=== PATIENT | male | born 1995 | race Caucasian/White ===

== ENCOUNTER 2016-12-16 23:46 | Emergency (ER) | payer BC ==
[~2016-12-16] VITALS: Ht 177.8 cm; Wt 48.5 kg
[2016-12-17] MEDS ORDERED: BENADRYL ALLERG25 M5 PO (00:05)
[2016-12-17] MEDS ORDERED: KENALOG 0.1%80 GM T (00:05)
[2016-12-17] MEDS ORDERED: PREDNISONE10 MG PO (00:05)
== END 2016-12-17 00:32 | disposition home or self-care (01) ==
LOC: ED 23:46
DX: L23.7 Allergic contact dermatitis due to plants, except food (principal)

== ENCOUNTER 2019-08-24 00:26 | Emergency (ER) | payer BC ==
[~2019-08-24] VITALS: Ht 175.2 cm; Wt 68.0 kg
[~2019-08-24 00:26] MED LIST: BENADRYL ALLERG25 M5 PO; KENALOG 0.1%80 GM T; PREDNISONE10 MG PO
[2019-08-24] MEDS ORDERED: AMOXICILLIN500 M2 PO ×2 (01:14→23:25)
[2019-08-24] MEDS ORDERED: CLINDAMYCIN HC300 MG PO (23:32)
== END 2019-08-24 01:42 | disposition home or self-care (01) ==
LOC: ED 00:26
DX: R22.0 Localized swelling, mass and lump, head (principal); R51 Headache; Z79.899 Other long term (current) drug therapy

== ENCOUNTER 2019-08-24 23:03 | Emergency (ER) | payer BC ==
[~2019-08-24] VITALS: Ht 434.3 cm; Wt 54.4 kg
[~2019-08-24 23:03] MED LIST changes: +AMOXICILLIN500 M2 PO
[2019-08-24] MEDS ORDERED: AMOXICILLIN500 M2 PO (23:25)
[2019-08-24] MEDS ORDERED: CLINDAMYCIN HC300 MG PO (23:32)
[2019-08-24 23:48] LABS: BASO % 0.1 % (0.0-1.0); EOS % 0.2 % (1.0-4.0); HEMATOCRIT 42.3 % (42.0-52.0); HEMOGLOBIN 14.4 g/dl (14.0-18.0); LYMPH # 2.7 10*3/uL (1.3-4.4); LYMPH % 18.8 % (27.0-41.0); MEAN CELL VOLUME 87.8 fl (80.0-94.0); MEAN CORPUSCULAR HGB 29.9 pg (27.0-31.0); MEAN PLATELET VOLUME 8.3 fl (9.6-12.3); MONO # 1.5 10*3/uL (0.1-1.0); MONO % 10.5 % (3.0-9.0); NEUT % 70.1 % (47.0-73.0); PLATELET COUNT AUTOMATED 244 10*3/uL (130-400); RED BLOOD COUNT 4.82 10*6/uL (4.50-5.90); RED CELL DISTRI WIDTH 12.4 % (0-14.5); WHITE BLOOD COUNT 14.2 10*3/uL (4.8-10.8)
[2019-08-25 00:03] LABS: ALBUMIN 4.1 gm/dl (3.1-4.5); ALKALINE PHOSPHATASE 89 U/L (45-117); BUN 7 mg/dl (7-24); CHLORIDE 105 mmol/L (98-107); CREATININE 0.89 mg/dL (0.70-1.30); POTASSIUM 3.9 mmol/L (3.5-5.1); SGOT/AST 54 IU/L (3-35); SGPT/ALT 51 U/L (12-78); SODIUM 139 mmol/L (136-145); TOTAL PROTEIN 8.2 gm/dL (6.4-8.2)
== END 2019-08-25 00:46 | disposition home or self-care (01) ==
LOC: ED 23:03
PROVIDERS: Physician Assistant
DX: K04.7 Periapical abscess without sinus (principal); Z79.2 Long term (current) use of antibiotics

== ENCOUNTER → 2020-11-05 | Outpatient (CLI) | payer SELFPAY ==
[~2020-11-05] MED LIST changes: +CLINDAMYCIN HC300 MG PO
== END | disposition home or self-care (01) ==
LOC: COVID19 09:34
PROVIDERS: ATTEND Family Medicine
DX: Z20.822 Contact with and (suspected) exposure to COVID-19 (principal)

== ENCOUNTER → 2021-08-01 | Outpatient (CLI) | payer BC | END | disposition home or self-care (01) | LOC: COVID19 15:44 | PROVIDERS: ATTEND Internal Medicine | DX: Z11.52 Encounter for screening for COVID-19 (principal) ==

== ENCOUNTER 2022-06-01 07:20 | Emergency (ER) | payer BC ==
[~2022-06-01] VITALS: Ht 180.3 cm; Wt 55.8 kg
[2022-06-01] MEDS ORDERED: LIDODERM1 EACH T (08:14)
== END 2022-06-01 08:17 | disposition short-term general hospital (02) ==
LOC: ED 07:20
DX: M94.0 Chondrocostal junction syndrome [Tietze] (principal)

== ENCOUNTER → 2023-05-16 | Outpatient (CLI) | payer BC ==
[~2023-05-16] MED LIST changes: +LIDODERM1 EACH T
[2023-05-16 14:51] LABS: BILIRUBIN Negative (Negative); BLOOD Negative (Negative); CLARITY Clear (Clear); COLOR Yellow (Yellow); GLUCOSE Negative (Negative); KETONE Negative (Negative); LEUKO ESTERASE Negative (Negative); NITRITE Negative (Negative); SPECIFIC GRAVITY 1.015 (1.001-1.030); UROBILINOGEN 0.2 E.U./dl (0.0-1.0)
[2023-05-16 14:53] LABS: BASO % 0.2 % (0.0-1.0); EOS # 0.1 10*3/uL (0.0-0.4); EOS % 0.5 % (1.0-4.0); HEMATOCRIT 42.4 % (42.0-52.0); LYMPH # 3.6 10*3/uL (1.3-4.4); LYMPH % 27.2 % (27.0-41.0); MEAN CELL VOLUME 86.5 fl (80.0-94.0); MEAN CORPUSCULAR HGB 31.2 pg (27.0-31.0); MEAN CORPUSCULAR HGB CONC 36.1 g/dl (33.0-37.0); MEAN PLATELET VOLUME 8.3 fl (9.6-12.3); MONO # 1.1 10*3/uL (0.1-1.0); MONO % 8.3 % (3.0-9.0); NEUT # 8.3 10*3/uL (2.3-7.9); NEUT % 62.8 % (47.0-73.0); PLATELET COUNT AUTOMATED 319 10*3/uL (130-400); RED CELL DISTRI WIDTH 11.7 % (0-14.5); WHITE BLOOD COUNT 13.2 10*3/uL (4.8-10.8)
[2023-05-16 15:08] LABS: BACTERIA TRACE; EPITHELIAL CELLS 0-2; RBC 0-2 rbc/hpf (0-2); WBC 0-2 wbc/hpf (0-5)
[2023-05-16 15:17] LABS: ALKALINE PHOSPHATASE 64 U/L (46-116); BUN 11 mg/dl (9-23); CHLORIDE 102 mmol/L (98-107); CHOLESTEROL 173 mg/dL (<200); GAMMA GLUTAMYL TRANSPEPTIDASE 24 U/L (0-73); LDL CHOLESTEROL 51 mg/dL (9-159); POTASSIUM 3.4 mmol/L (3.4-5.1); SGPT/ALT 25 U/L (10-49); T3 UPTAKE 25.5 % (22.4-36.7); THYROXINE (T4) TOTAL 6.3 ug/dl (4.5-10.9); TOTAL PROTEIN 7.7 gm/dL (6.0-8.0); TRIGLYCERIDES 178 mg/dl (<150); URIC ACID 4.7 mg/dL (3.7-9.2)
[2023-05-16 15:18] LABS: VITAMIN D, 25-HYDROXY 18.5 ng/mL (30-100)
[2023-05-17 12:07] LABS: ANTI-DSDNA ANTIBODIES 1 IU/mL (0-9)
== END | disposition home or self-care (01) ==
LOC: LAB 14:20
PROVIDERS: ATTEND Family Medicine
DX: M54.6 Pain in thoracic spine (principal); R79.89 Other specified abnormal findings of blood chemistry; E78.5 Hyperlipidemia, unspecified; E55.9 Vitamin D deficiency, unspecified; R53.83 Other fatigue

== ENCOUNTER → 2025-01-13 | Outpatient (CLI) | payer BC | END | disposition home or self-care (01) | LOC: RAD 14:45 | PROVIDERS: ATTEND Family Medicine | DX: M51.34 Other intervertebral disc degeneration, thoracic region (principal) ==

== ENCOUNTER → 2025-03-11 | Outpatient (CLI) | payer BC | END | disposition home or self-care (01) | LOC: MRI 07:57 | PROVIDERS: ATTEND Family Medicine | DX: M51.34 Other intervertebral disc degeneration, thoracic region (principal); M48.04 Spinal stenosis, thoracic region ==